=== PATIENT | male | born 1985 | race Caucasian/White ===

== ENCOUNTER 2017-02-25 17:24 | Emergency (ER) | payer OTHER ==
--- NOTE | ~2017-02-25 | CR243 ---
[facility]. [facility] A Service of [facility] & [facility] RADIOLOGY TEXT RESULTS PATIENT: ISIDRA ARORA LOCATION: SED : 85 UNIT #: [id number] AGE: [address]: Julianna Martinez SEX: M ORDER DR: [id number] [address] [address] [id number] E MR#: [id number] Acc #: [id number] NAME: ISIDRA ARORA : 1985 SEX: M STUDY DATE/TIME: 02/25/2017 17:44 UNIT: SED ROOM: STUDY DESCRIPTION: CR Thoracic Spine 3 Views Attending Physician: Julianna Martinez Pa-C Ordering Physician: Julianna Martinez Pa-C Primary Care Physician: Primary Care Physician No MEDICAL IMAGING REPORT This report is preliminary unless electronic signature is present. EXAM THORACIC spine 3 views 02/25/2017 HISTORY Thoracic spine pain mid upper back pain and bilateral flank pain for 2 days with no known injury. FINDINGS Three views of the thoracic spine demonstrate no fracture. The posterior vertebral body line is intact and there is no anterolisthesis or retrolisthesis. The disc spaces are normally maintained. Mild scoliosis of the thoracic spine is noted. IMPRESSION Mild thoracic spine scoliosis. No evidence of thoracic spine fracture. Dictated by... Alistair Zhu M.D. THIS IS AN ELECTRONICALLY VERIFIED REPORT Alistair Zhu M.D. at 02/26/2017 2:15 PM RILEY/mary TD: 02/26/2017 09:36 JOB #: [id number] MEDICAL IMAGING REPORT Page 1 of 1
[~2017-02-25 17:24] MED LIST: AMOXICILLIN PO; AMOXICILLIN875 MG PO; BACTRIM DS TABL1 TA1 PO; CIPRO PO; NEOMYCIN-POLYMY10 ML OT; NO MEDICATIONS; PEN-VEE K PO; PERCOCET5/325 PO; TYLENOL #3 PO; VOLTAREN75 MG PO
== END 2017-02-25 18:37 | disposition home or self-care (01) ==
LOC: SED 17:24
DX: S29.012A Strain of muscle and tendon of back wall of thorax, initial encounter (principal); F17.200 Nicotine dependence, unspecified, uncomplicated; X58.XXXA Exposure to other specified factors, initial encounter
CPT/HCPCS: 72072; 99283